=== PATIENT | female | born 1990 | race Hispanic/Latino ===

== ENCOUNTER 2018-03-27 23:38 | Emergency (ER) | payer BC, SELFPAY ==
[2018-03-28 01:48] LABS: Absolute Lymphocytes (CBC) 2.5 K/uL (0.7-4.9); Absolute Monocytes 0.4 K/uL (0.1-1.3); Absolute Neutrophil 3.7 K/uL (1.8-8.0); Eosinophils % 2.6 % (0-4.4); Hematocrit 36.8 % (36.0-45.0); Lymphocytes % 36.4 % (15.3-44.8); MPV 9.8 fL (7.6-11.3); Monocytes % 6.3 % (3.3-12.3); RBC Red Blood Cell Count 4.39 M/uL (3.86-4.86)
[2018-03-28] MEDS ORDERED: LORAZEPAM 0.5 MG TABLET ONE (01:55)
[2018-03-28 02:09] LABS: BUN Blood Urea Nitrogen 13 mg/dL (7-18); Bicarbonate 23 mmol/L (21-32); Glucose Level 105 mg/dL (74-106); Potassium 4.1 mmol/L (3.5-5.1); Sodium Level 139 mmol/L (136-145); Troponin (Emerg Dept Use Only) < 0.02 ng/mL (0.0-0.045)
--- NOTE | 2018-03-28 02:33 | EDPHYS ---
Physician Documentation [facility] Name: Heather Angeles Age: 27 yrs Sex: Female : 1990 Arrival Date: 03/27/2018 Time: 23:43 Bed 13 Private MD: ED Physician Hunter Agrawal HPI: 03/28 02:17 This 27 yrs old Female presents to ER via Ambulatory with complaints of Chest jr8 Pain, Shortness Of Breath. 02:17 Patient stated that she felt slightly anxious before going to bed tonight. About an jr8 hour after falling asleep woke up with palpitations, shortness of breath, and chest tightness. [place] that her extremities were becoming numb and heavy . Severity of symptoms: At their worst the symptoms were moderate in the emergency department the symptoms have improved moderately. The patient has not experienced similar symptoms in the past. The patient has not recently seen a physician. 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 - Social history:: Smoking status: Patient/guardian denies using tobacco, Patient uses alcohol, occasionally. - Ebola Screening: : No symptoms or risks identified at this time. ROS: 02:17 Eyes: Negative for injury, pain, redness, and discharge, ENT: Negative for injury, jr8 pain, and discharge, Neck: Negative for injury, pain, and swelling, Respiratory: Negative for shortness of breath, cough, wheezing, and pleuritic chest pain, Abdomen/GI: Negative for abdominal pain, nausea, vomiting, diarrhea, and constipation, Back: Negative for injury and pain, MS/Extremity: Negative for injury and deformity, Skin: Negative for injury, rash, and discoloration. 02:17 Cardiovascular: Positive for chest pain, palpitations, Negative for edema, orthopnea, paroxysmal nocturnal dyspnea. 02:17 Neuro: Positive for numbness, Negative for altered mental status, dizziness, gait disturbance, headache, hearing loss, loss of consciousness, seizure activity, speech changes, syncope, near syncope, tingling, tinnitus, tremor, visual changes, weakness. 02:17 Psych: Positive for anxiety, Negative for depression, suicide gesture, suicidal jr8 ideation. Exam: 02:17 Eyes: Pupils equal round and reactive to light, extra-ocular motions intact. Lids and jr8 lashes normal. Conjunctiva and sclera are non-icteric and not injected. Cornea within normal limits. Periorbital areas with no swelling, redness, or edema. ENT: Nares patent. No nasal discharge, no septal abnormalities noted. Tympanic membranes are normal and external auditory canals are clear. Oropharynx with no redness, swelling, or masses, exudates, or evidence of obstruction, uvula midline. Mucous membranes moist. Neck: Trachea midline, no thyromegaly or masses palpated, and no cervical lymphadenopathy. Supple, full range of motion without nuchal rigidity, or vertebral point tenderness. No Meningismus. Cardiovascular: Regular rate and rhythm with a normal S1 and S2. No gallops, murmurs, or rubs. Normal PMI, no JVD. No pulse deficits. Respiratory: Lungs have equal breath sounds bilaterally, clear to auscultation and percussion. No rales, rhonchi or wheezes noted. No increased work of breathing, no retractions or nasal flaring. Abdomen/GI: Soft, non-tender, with normal bowel sounds. No distension or tympany. No guarding or rebound. No evidence of tenderness throughout. Back: No spinal tenderness. No costovertebral tenderness. Full range of motion. Skin: Warm, dry with normal turgor. Normal color with no rashes, no lesions, and no evidence of cellulitis. MS/ Extremity: Pulses equal, no cyanosis. Neurovascular intact. Full, normal range of motion. Neuro: Awake and alert, GCS 15, oriented to person, place, time, and situation. Cranial nerves II-XII grossly intact. Motor strength 5/5 in all extremities. Sensory grossly intact. Cerebellar exam normal. Normal gait. Vital Signs: 00:19 BP 140 / 106; Pulse 116; Resp 20; Temp 98.4(O); Pulse Ox 99% on R/A; Weight 113.4 kg ak1 (R); Height 5 ft. 5 in. (165.10 cm); Pain 4/10; 00:34 BP 116 / 78; Pulse 98; Resp 14; Pulse Ox 99% on R/A; ak1 01:52 BP 115 / 79; Pulse 94; Resp 15; Pulse Ox 99% on R/A; ak1 00:19 Body Mass Index 41.60 (113.40 kg, 165.10 cm) ak1 MDM: 00:28 Patient medically screened. jr8 02:17 Data reviewed: vital signs, nurses notes, lab test result(s), EKG, radiologic studies, jr8 plain films, and as a result, I will discharge patient. Data interpreted: Pulse oximetry: on room air is 99 %. Interpretation: normal. Counseling: I had a detailed discussion with the patient and/or guardian regarding: the historical points, exam findings, and any diagnostic results supporting the discharge/admit diagnosis, lab results, radiology results, the need for outpatient follow up, a family practitioner, to return to the emergency department if symptoms worsen or persist or if there are any questions or concerns that arise at home. Response to treatment: the patient's symptoms have resolved after treatment, and as a result, I will discharge patient. 03/28 01:29 Order name: CBC with Diff; Complete Time: 01:57 8 03/28 01:29 Order name: Basic Metabolic Panel; Complete Time: 02:32 jr8 03/28 00:29 Order name: XRAY Chest (1 view) 8 03/28 01:29 Order name: Troponin (emerg Dept Use Only); Complete Time: 02:32 jr8 03/28 01:29 Order name: EKG - Nurse/Tech; Complete Time: 01:29 jr8 Administered Medications: 01:30 CANCELLED (Physician Discretion): Ativan 0.5 mg IVP once jr8 01:48 Not Given (Physician Discretion; medication not avalible in ER): Ativan 1 mg PO once ak1 01:48 Drug: Ativan 0.5 mg Route: PO; ak1 02:41 Follow up: Response: No adverse reaction; Anxiety decreased ak1 Disposition: 02:54 Co-signature as Attending Physician, Hunter Agrawal MD. Disposition: 03/28/18 02:32 Discharged to Home. Impression: Panic disorder [episodic paroxysmal anxiety] without agoraphobia. - Condition is Stable. - Discharge Instructions: Panic Attacks. - Prescriptions for Hydroxyzine HCl 50 mg Oral Tablet - take 1 tablet by ORAL route every 8 hours As needed; 20 tablet. - Work release form, Medication Reconciliation Form, Thank You Letter, Antibiotic Education, Prescription Opioid Use form. - Follow up: Private Physician; When: 2 - 3 days; Reason: Recheck today's complaints, Continuance of care, Re-evaluation by your physician. - Problem is new. - Symptoms have improved. Signatures: Dispatcher [employer] EDMS Yelena Blanchard RN RN bb Juan Fuentes PA PA jr8 Najma Hammer RN RN ak1 Hunter Agrawal MD MD gs Corrections: (The following items were deleted from the chart) 01:30 01:29 Ativan 0.5 mg IVP once ordered. jr8 jr8 02:44 02:32 03/28/2018 02:32 Discharged to Home. Impression: Panic disorder [episodic bb paroxysmal anxiety] without agoraphobia. Condition is Stable. Forms are Medication Reconciliation Form, Thank You Letter, Antibiotic Education, Prescription Opioid Use. Follow up: Private Physician; When: 2 - 3 days; Reason: Recheck today's complaints, Continuance of care, Re-evaluation by your physician. Problem is new. Symptoms have improved. jr8
--- NOTE | 2018-03-28 02:33 | ER ---
Nurse's Notes [facility] Name: Heather Angeles Age: 27 yrs Sex: Female : 1990 Arrival Date: 03/27/2018 Time: 23:43 Bed 13 Private MD: Diagnosis: Panic disorder [episodic paroxysmal anxiety] without agoraphobia Presentation: 03/28 00:17 Presenting complaint: Patient states: pain between her shoulder blades starting at ak1 2130. pt c/o SOB at 2315 tonight. pt denies N/V/D. pt stated she has had same pain in the past that resolved on its own with no dx. Transition of care: patient was not received from another setting of care. Onset of symptoms was March 27, 2018. Risk Assessment: Do you want to hurt yourself or someone else? Patient reports no desire to harm self or others. Initial Sepsis Screen: Does the patient meet any 2 criteria? No. Patient's initial sepsis screen is negative. Does the patient have a suspected source of infection? No. Patient's initial sepsis screen is negative. Care prior to arrival: None. 00:17 Method Of Arrival: Ambulatory ak1 00:17 Acuity: FE 3 ak1 Triage Assessment: 00:19 General: Appears in no apparent distress. Behavior is calm, cooperative, anxious. Pain: ak1 Complains of pain in thoracic area. EENT: No signs and/or symptoms were reported regarding the EENT system. Neuro: No deficits noted. Cardiovascular: Reports shortness of breath, Denies chest pain, nausea. Respiratory: No deficits noted. GI: No signs and/or symptoms were reported involving the gastrointestinal system. : No signs and/or symptoms were reported regarding the genitourinary system. Derm: No signs and/or symptoms reported regarding the dermatologic system. Musculoskeletal: No signs and/or symptoms reported regarding the musculoskeletal system. 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 - Social history:: Smoking status: Patient/guardian denies using tobacco, Patient uses alcohol, occasionally. - Ebola Screening: : No symptoms or risks identified at this time. Screenin:21 Abuse screen: Denies threats or abuse. Denies injuries from another. Nutritional ak1 screening: No deficits noted. Tuberculosis screening: No symptoms or risk factors identified. Fall Risk None identified. Assessment: 00:22 Pain: Pain does not radiate. Pain began 2129. ak1 00:23 Reassessment: Patient appears in no apparent distress at this time. No changes from ak1 previously documented assessment. see triage assessment. General: Appears in no apparent distress. 01:49 Reassessment: Patient appears in no apparent distress at this time. No changes from ak1 previously documented assessment. Patient states feeling better. Patient states symptoms have improved. Vital Signs: 00:19 BP 140 / 106; Pulse 116; Resp 20; Temp 98.4(O); Pulse Ox 99% on R/A; Weight 113.4 kg ak1 (R); Height 5 ft. 5 in. (165.10 cm); Pain 4/10; 00:34 BP 116 / 78; Pulse 98; Resp 14; Pulse Ox 99% on R/A; ak1 01:52 BP 115 / 79; Pulse 94; Resp 15; Pulse Ox 99% on R/A; ak1 00:19 Body Mass Index 41.60 (113.40 kg, 165.10 cm) ak1 ED Course: 0203 23:43 Patient arrived in ED. am2 02/04 00:17 Najma Hammer, RN is Primary Nurse. ak1 00:18 Triage completed. ak1 00:19 Arm band placed on Patient placed in an exam room, on a stretcher, on cardiac exercise specialist, ak1 on pulse oximetry. EKG completed in triage. Results shown to MD. 00:21 Patient has correct armband on for positive identification. Placed in gown. Bed in low ak1 position. Call light in reach. Side rails up X 1. Adult w/ patient. potline monitor on. Pulse ox on. NIBP on. 00:21 Patient maintains SpO2 saturation greater than 95% on room air. ak1 00:28 Juan Fuentes PA is PHCP. jr8 00:28 Hunter Agrawal MD is Attending Physician. jr8 00:46 X-ray completed. Portable x-ray completed in exam room. Patient tolerated procedure kw well. 00:47 XRAY Chest (1 view) In Process Unspecified. EDMS 01:48 Initial lab(s) drawn, by me, sent to lab. ak1 01:49 No provider procedures requiring assistance completed. ak1 02:40 Patient did not have IV access during this emergency room visit. ak1 Administered Medications: 01:30 CANCELLED (Physician Discretion): Ativan 0.5 mg IVP once jr8 01:48 Not Given (Physician Discretion; medication not avalible in ER): Ativan 1 mg PO once ak1 01:48 Drug: Ativan 0.5 mg Route: PO; ak1 02:41 Follow up: Response: No adverse reaction; Anxiety decreased ak1 Outcome: 02:32 Discharge ordered by MD. jr8 02:40 Discharged to home ambulatory, with family. ak1 02:40 Condition: improved 02:40 Discharge instructions given to patient, family, Instructed on discharge instructions, follow up and referral plans. no drinking with medication, no driving heavy equipment, medication usage, Demonstrated understanding of instructions, follow-up care, medications, Prescriptions given X 1. 02:44 Patient left the ED. bb Signatures: Dispatcher [employer] EDMS Yelena Blanchard RN RN bb Digna Marti Josh, PA PA jr8 Najma Hammer RN RN ak1 Heather Moran am2
--- NOTE | 2018-03-28 08:16 | RAD REPORT ---
EXAM DESCRIPTION: RAD - Chest Single View - 03/28/2018 12:47 am CLINICAL HISTORY: CHEST PAIN Chest pain. COMPARISON: No comparisons FINDINGS: Portable technique limits examination quality. The lungs are grossly clear. The heart is normal in size. No displaced fractures. IMPRESSION: No acute intrathoracic process suspected.
--- NOTE | 2018-03-28 09:25 | EKG ---
Test Date: 2018-03-28 Test Time: 00:09:36 Pattern Chain Maker Supervisor: ARASH MEASUREMENT RESULTS: Intervals: Rate: 116 MN: 142 QRSD: 84 QT: 338 QTc: 469 [place]: P: 47 MN: 142 QRS: 20 T: 35 INTERPRETIVE STATEMENTS: Sinus tachycardia Otherwise normal ECG No previous ECG available for comparison Electronically Signed On 03-28-18 09:24:33 COPYIST by Tony Sow
== END 2018-03-28 02:44 | disposition home or self-care (01) ==
LOC: ER 23:38
DX: F41.0 Panic disorder [episodic paroxysmal anxiety] (principal)
CPT/HCPCS: 36415; 71045; 80048; 84484; 85025; 93005; 99285

== ENCOUNTER 2023-11-17 12:15 | Emergency (ER) | payer BC ==
--- OUTSIDE RECORDS SUMMARY | 2023-11-17 12:18 | XMS REPORT | Continuity of Care Document ---
Author Name Unknown Address [address] [place] [address] [address] [place], [place] [id number] [place] [address] thconnect Address [address] [facility] [address] [place] [address] Care Team Providers Care Bail Agent Name Role Phone Alfa_May_CALEB_ Attending Clinician Unavailable Bui_Q_WAGDNU Attending Clinician Unavailable GC_SEFP_Rivera_A Attending Clinician Unavailable Alfa_May_CALEB_ Admitting Clinician Unavailable Bui_Q_WAGDNU Admitting Clinician Unavailable GC_SEFP_Rivera_A Admitting Clinician Unavailable Payers Payer Name Policy Type Policy Number Effective Date Expirati on Date Source [facility] - [facility] BENEFIT [facility] MANAGEMENT - [employer] [id number] [place]) [id number] 2017 00:00:00 Problems Condition Name Condition Details Condition Category Status Onset Date Resolution Date Last Treatment Date Treating Clinician Comments Source Generalize d anxiety disorder Generalize d Anxiety Disorder Problem Active 07-16 00:00: 00 [facility] Depressive disorder Depressive Disorder Problem Active 06-16 00:00: 00 [facility] Dyslipidem ia Dyslipidem ia Problem Active 05-16 00:00: 00 [facility] Anxiety disorder Anxiety Disorder Problem Active 04-28 00:00: 00 [facility] Allergies, Adverse Reactions, Alerts Allergy Name Allergy Type Status Severity Reaction(s) Onset Date Inactive Date Treating Clinician Comments Source PENICILL INS Allergy to substanc e Active Other [facility] CAT DANDER Allergy to substanc e Active Itching, Rash [facility] House Dust Allergy to substanc e Active Itching, Rash [facility] Social History Smoking Status Start Date Stop Date Source Current Some Day Smoker [facility] Medications Ordered Medication Name Filled Medication Name Start Date Stop Date Current Medication? Ordering Clinician Indication Dosage Frequency Signature (SIG) Comments Components Source fluoxetine 20 mg capsule Take 1 capsule every day by oral route. fluoxetine 20 mg capsule Take 1 capsule every day by oral route. No 1capsul e(s) Q1D fluoxetine 20 mg capsule Take 1 capsule every day by oral route. [facility] hydroxyzine HCl 10 mg tablet 1 po qhs prn panic attack hydroxyzine HCl 10 mg tablet 1 po qhs prn panic attack No hydroxyzin e HCl 10 mg tablet 1 po qhs prn panic attack [facility] topiramate 25 mg tablet Take 1 tablet every day by oral route in the evening. topiramate 25 mg tablet Take 1 tablet every day by oral route in the evening. No 1 Q1D topiramate 25 mg tablet Take 1 tablet every day by oral route in the evening. [facility] fluoxetine 20 mg tablet Take 1 tablet every day by oral route. fluoxetine 20 mg tablet Take 1 tablet every day by oral route. No 1 Q1D fluoxetine 20 mg tablet Take 1 tablet every day by oral route. [facility] Vital Signs Vital Name Observation Time Observation Value Comments S ource BP Diastolic 2022-07-16 00:00:00 90 mm[Hg] [facility] Height 2022-07-16 00:00:00 63 [in_i] [facility] BMI (Body Mass Index) 2022-07-16 00:00:00 38.4 kg/m2 [facility] BP Systolic 2022-07-16 00:00:00 138 mm[Hg] [facility] Body Weight 2022-07-16 00:00:00 217 [lb_av] [facility] BP Diastolic 2018-05-16 00:00:00 72 mm[Hg] [facility] Height 2018-05-16 00:00:00 64 [in_i] [facility] BMI (Body Mass Index) 2018-05-16 00:00:00 43.5 kg/m2 [facility] BP Systolic 2018-05-16 00:00:00 128 mm[Hg] [facility] Body Weight 2018-05-16 00:00:00 253.4 [lb_av] [facility] BP Diastolic 2018-05-14 00:00:00 80 mm[Hg] [facility] Height 2018-05-14 00:00:00 64 [in_i] [facility] BMI (Body Mass Index) 2018-05-14 00:00:00 43.3 kg/m2 [facility] BP Systolic 2018-05-14 00:00:00 110 mm[Hg] [facility] Body Weight 2018-05-14 00:00:00 252 [lb_av] [facility] BP Diastolic 2018-04-28 00:00:00 88 mm[Hg] [facility] Height 2018-04-28 00:00:00 64 [in_i] [facility] BMI (Body Mass Index) 2018-04-28 00:00:00 43.7 kg/m2 [facility] BP Systolic 2018-04-28 00:00:00 134 mm[Hg] [facility] Body Weight 2018-04-28 00:00:00 254.6 [lb_av] [facility] Procedures Procedure Date / Time Performed Performing Clinicia n Source electrocardiogram 2018-05-16 00:00:00 [facility] Plan of Care Planned Activity Planned Date Details Comments Source Instructions [facility] Encounters Start Date/Time End Date/Time Encounter Type Admission Type Attending Clinicians Care Facility Care Department Encounter ID Source 2023-03-19 00:00:00 2023-03-19 00:00:00 Outpatient Bui_Q_HOU_M D VFP VFP [id number] [facility] 2023-02-11 00:00:00 2023-02-11 00:00:00 Outpatient Bui_Q_HOU_M D VFP VFP [id number] [facility] 2023-01-07 00:00:00 2023-01-07 00:00:00 Outpatient Bui_Q_HOU_M D VFP VFP [id number] [facility] 2022-07-16 00:00:00 2022-07-16 00:00:00 Outpatient Bui_Q VFP VFP [id number] [facility] 2022-07-16 00:00:00 2022-07-16 00:00:00 Outpatient Bui_Q_WAGDN U VFP VFP [id number] [facility] 2022-07-16 00:00:00 2022-07-16 00:00:00 Outpatient Bui_Q_WAGDN U VFP VFP [id number] [facility] 2022-07-16 00:00:00 2022-07-16 00:00:00 Alexa Diego MD: [address] [facility] [address], [place] [address] , Ph. VFP [place] - [facility] - [place] - VM_HOU_[facility] (WAG) [id number] [facility] 2022-07-13 00:00:00 2022-07-13 00:00:00 Outpatient GC_SEFP_Riv era_A PRIV PRIV [id number] [facility] 2022-07-10 00:00:00 2022-07-10 00:00:00 Outpatient GC_SEFP_Riv era_A PRIV PRIV [id number] [facility] 2022-07-07 00:00:00 2022-07-07 00:00:00 Outpatient GC_SEFP_Riv era_A PRIV PRIV [id number] [facility] 2022-07-06 00:00:00 2022-07-06 00:00:00 Outpatient GC_SEFP_Riv era_A PRIV PRIV [id number] [facility] 2022-07-03 00:00:00 2022-07-03 00:00:00 Outpatient PRIV PRIV [id number] [facility] 2018-12-28 00:00:00 2018-12-28 00:00:00 Outpatient Bui_Q_WAGDN U VFP VFP [id number] [facility] 2018-05-16 00:00:00 2018-05-16 00:00:00 Preston Grimm MD: [address] [facility] [address], [place] [address] , Ph. VFP [place] - [facility] - VFP-[place] d [id number] [facility] 2018-05-14 00:00:00 2018-05-14 00:00:00 Preston Grimm MD: [address], [address], [place] [address] , Ph. VFP [facility] - VFP-[place] [id number] [facility] e 2018-04-28 00:00:00 2018-04-28 00:00:00 Preston Grimm MD: [address], [address], [place] [address] , Ph. VFP [place] - [facility] - VFP-[place] [id number] [facility] Practic e Results Test Description Test Time Test Comments Results Resul t Comments Source EKG study 2018-05-16 21:38:00 Rate & RhythmQrsPR IntervalQRS DurationQT [facility]val [facility] - Serum or Plasma 2018-05-16 17:32:00* Test Item Value Reference Range Interpretation Comme nts ALT (test code = ALT) 45 U/L 0-55 AST (test code = AST) 34 U/L 5-34 BUN (test code = BUN) 11.1 mg/dL 7.0-18.7 alk phos (test code = alk phos) 84 unit/L 40-150 glucose (test code = glucose) 87 mg/dL 70-99 albumin (test code = albumin) 4.0 g/dL 3.5-5.0 creatinine (test code = creatinine) 0.73 mg/dL 0.57-1.11 eGFR non- (t est code = eGFR non-) >60 total bilirubin (test code = total bilirubin) 0.4 mg/dL 0.2-1.2 eGFR - (indira t code = eGFR - ) >60 sodium (test code = sodium) 136 mEq/L 136-145 potassium (test code = potassium) 4.7 mEq/L 3.5-5.1 chloride (test code = chloride) 103 mmol/L 98-107 total protein (test code = t otal protein) 7.6 g/dL 6.4-8.3 calcium (test code = calcium) 10.0 mg/dL 8.4-10.2 CO2 (test code = CO2) 25.6 mmol/L 22.0-29.0 anion gap (test code = anion gap) 7 calc [facility]Units/volume] in Serum or [id number] 17:32:00* Test Item Value Reference Range Interpretation Comme [facility] TSH (test code = TSH) 1.069 uIU/mL 0.350-4.940 [facility]/Hemoglobin.total in [id number] 17:05:00* Test Item Value Reference Range Interpretation Comme nts Hemoglobin A1c/Hemoglobin.to brown in Blood (test code = 4548-4) 5.2 % 1.0-5.7 average blood glucose (test code = average blood glucose) 103 mg/dL [facility] Auto Differential panel - [id number] 03:43:00 * Test Item Value Reference Range Interpretation Comme [facility] white blood cell count (test code = white blood cell count) 6.0 thousand/uL 3.8-10.8 red blood cell count (test code = red blood cell count) 4.69 million/uL 3.80-5.10 hemoglobin (test code = hemoglobin) 13.0 g/dL 11.7-15.5 hematocrit (test code = hematocrit) 39.5 % 35.0-45.0 MCV (test code = MCV) 84.2 fL 80.0-100.0 MCH (test code = MCH) 27.7 pg 27.0-33.0 MCHC (test code = MCHC) 32.9 g/dL 32.0-36.0 RDW (test code = RDW) 12.7 % 11.0-15.0 platelet count (test code = platelet count) 257 thousand/uL 140-400 MPV (test code = MPV) 11.8 fL 7.5-12.5 absolute neutrophils (test code = absolute neutrophils) 3486 cells/uL 9109-4182 absolute lymphocytes (test code = absolute lymphocytes) 2028 cells/uL 850-3900 absolute monocytes (test cod e = absolute monocytes) 348 cells/uL 200-950 absolute eosinophils (test code = absolute eosinophils) 120 cells/uL 15-500 absolute basophils (test cod e = absolute basophils) 18 cells/uL 0-200 neutrophils (test code = neutrophils) 58.1 % lymphocytes (test code = lymphocytes) 33.8 % monocytes (test code = monocytes) 5.8 % eosinophils (test code = eosinophils) 2.0 % basophils (test code = basophils) 0.3 % [facility]
--- NOTE | 2023-11-17 12:33 | ER ---
Nurse's Notes [facility] Name: Heather Angeles Age: 32 yrs Sex: Female : 1990 Arrival Date: 11/17/2023 Time: 12:15 Bed 9 Private MD: Diagnosis: Rash and other nonspecific skin eruption Presentation: 11/16 12:22 Chief complaint: Patient states: GLOBAL RASH SPREADING SINCE WEDNESDAY. Coronavirus bp screen: At this time, the client does not indicate any symptoms associated with coronavirus-19. Ebola Screen: No symptoms or risks identified at this time. Initial Sepsis Screen: Does the patient meet any 2 criteria? No. Patient's initial sepsis screen is negative. Does the patient have a suspected source of infection? No. Patient's initial sepsis screen is negative. Risk Assessment: Do you want to hurt yourself or someone else? Patient reports no desire to harm self or others. Onset of symptoms is unknown. 12:22 Method Of Arrival: Ambulatory bp 12:22 Acuity: FE 5 bp Triage Assessment: 12:23 General: Appears uncomfortable, Behavior is cooperative, appropriate for age, anxious. bp Pain: Denies pain. Derm: Rash noted that is urticaria, on GLOBAL. 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 - Infectious Disease History:: Denies. - Social history:: Smoking status: Patient denies any tobacco usage or history of. Screenin:24 [facility] ED Fall Risk Assessment (Adult) History of falling in the last 3 months, bp including since admission No falls in past 3 months (0 pts) Confusion or Disorientation No (0 pts) Intoxicated or Sedated No (0 pts) Impaired Gait No (0 pts) Mobility Assist Device Used No (0 pt) Altered Elimination No (0 pt) Score/Fall Risk Level 0 - 2 = Low Risk. Abuse screen: Denies threats or abuse. Denies injuries from another. Nutritional screening: No deficits noted. Tuberculosis screening: No symptoms or risk factors identified. Assessment: 12:20 General: Appears uncomfortable, well groomed, well developed, well nourished, Behavior me1 is calm, cooperative, appropriate for age, Reports Global rash that is spreading. Pain: Denies pain. Neuro: Level of Consciousness is awake, alert, obeys commands, Oriented to person, place, time, situation, Appropriate for age. Cardiovascular: Patient's skin is warm and dry. Respiratory: Airway is patent Respiratory effort is even, unlabored, Respiratory pattern is regular, symmetrical. GI: No signs and/or symptoms were reported involving the gastrointestinal system. : No signs and/or symptoms were reported regarding the genitourinary system. EENT: No signs and/or symptoms were reported regarding the EENT system. Derm: Skin is intact, is healthy with good turgor, Skin is pink, warm \T\ dry. Derm: Rash noted that is red, raised, on generalized. Musculoskeletal: No signs and/or symptoms reported regarding the musculoskeletal system. Vital Signs: 12:22 BP 155 / 91; Pulse 99; Resp 16; Temp 97.4; Pulse Ox 100% ; Weight 95.25 kg; Height 5 bp ft. 3 in. ; 12:52 BP 142 / 87; Pulse 91; Resp 16; Temp 98.1; Pulse Ox 100% ; me1 12:22 Body Mass Index 37.20 (95.25 kg, 160.02 cm) bp ED Course: 12:17 Patient arrived in ED. im 12:20 Kevin Hunter MD is Attending Physician. ec2 12:20 Provided Education on: POC. Verbalized understanding. . me1 12:20 No provider procedures requiring assistance completed. Patient did not have IV access me1 during this emergency room visit. 12:23 Triage completed. bp 12:23 Arm band placed on. bp 12:24 Patient has correct armband on for positive identification. bp 12:38 Carina Alcazar, SONAL is Primary Nurse. me1 Administered Medications: 12:46 Drug: Doxycycline PO 100 mg PO once Route: PO; me1 12:50 Follow up: Response: No adverse reaction me1 12:46 Drug: predniSONE PO 40 mg PO once Route: PO; me1 12:50 Follow up: Response: No adverse reaction me1 Medication: 12:20 VIS not applicable for this client. me1 Outcome: 12:33 Discharge ordered by MD. ec2 13:00 Discharged to home ambulatory, me1 13:00 Condition: stable 13:00 Discharge instructions given to patient, Instructed on discharge instructions, follow up and referral plans. medication usage, Demonstrated understanding of instructions, follow-up care, medications, Prescriptions given X 2, 13:02 Patient left the ED. me1 Signatures: Refugio Dueñas RN RN Ayana Stinson Michelle, RN RN me1 Kevin Hunter MD MD ec2 Corrections: (The following items were deleted from the chart) 12:47 12:22 Chief complaint: Patient states: GLOBAL RASH SPREADING SINCE WEDNESDAY me1
--- NOTE | 2023-11-17 12:33 | EDPHYS ---
Physician Documentation [facility] Name: Heather Angeles Age: 32 yrs Sex: Female : 1990 Arrival Date: 11/17/2023 Time: 12:15 Bed 9 Private MD: ED Physician Kevin Hunter HPI: 11/16 12:30 This 32 yrs old Female presents to ER via Ambulatory with complaints of Rash. ec2 12:30 Patient arrives today for evaluation of a rash. Patient reports that she started ec2 developing a rash 4 days ago, initially started on the lower extremities, now has it on the hands spreading to the trunk. No fevers or chills. Does perform outdoor activities with barbecue and recently. No headaches, no infectious symptoms. No cough and cold symptoms. No recent new allergens.. 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 - Infectious Disease History:: Denies. - Social history:: Smoking status: Patient denies any tobacco usage or history of. ROS: 12:30 Constitutional: as per hpi ec2 Exam: 12:30 Constitutional: GEN: NAD Head: atraumatic Eyes: EOMI Ears: External ears are ec2 normal. CV: regular rate LUNGS: no respiratory distress ABD: non-distended SKIN: Small raised lesions noted in the bilateral lower extremities along with the bilateral upper extremities, less than 1 cm in size, raised, nonpustular, no drainage appreciated. No surrounding erythema. No warmth. Otherwise no evidence of oral or ocular involvement. MSK: no evidence of trauma Vital Signs: 12:22 BP 155 / 91; Pulse 99; Resp 16; Temp 97.4; Pulse Ox 100% ; Weight 95.25 kg; Height 5 bp ft. 3 in. ; 12:52 BP 142 / 87; Pulse 91; Resp 16; Temp 98.1; Pulse Ox 100% ; me1 12:22 Body Mass Index 37.20 (95.25 kg, 160.02 cm) bp MDM: 12:21 Patient medically screened. ec2 12:30 Data reviewed: vital signs. ED course: Patient arrives today for evaluation of a rash. ec2 Examination remarkable for skin findings as above. Possible tickborne exposure given the centripetal nature of it, possible allergen. I will start patient on doxycycline and steroids. I will discharge to home and have her follow-up PCP. Return precautions given. Of note will start on doxycycline without testing for as patient has female partner.. Administered Medications: 12:46 Drug: Doxycycline PO 100 mg PO once Route: PO; me1 12:50 Follow up: Response: No adverse reaction me1 12:46 Drug: predniSONE PO 40 mg PO once Route: PO; me1 12:50 Follow up: Response: No adverse reaction me1 Disposition Summary: 11/17/23 12:33 Discharge Ordered Notes: Location: Home ec2 Condition: Stable ec2 Diagnosis - Rash and other nonspecific skin eruption ec2 Followup: ec2 - With: Private Physician - When: - Reason: Re-evaluation by your physician Discharge Instructions: - Discharge Summary Sheet ec2 - Rash, Adult ec2 Forms: - Work release form me1 - Medication Reconciliation Form ec2 - Antibiotic Education ec2 - Prescription Opioid Use ec2 - Patient Portal Instructions ec2 - Leadership Thank You Letter ec2 Prescriptions: - Doxycycline Hyclate 100 mg Oral tablet - take 1 tablet ORAL route every 12 hours; 10 tablet; Refills: 0, Product ec2 Selection Permitted - Prednisone 20 mg Oral Tablet - take 2 tablets ORAL route once daily for 5 days; 10 tablet; Refills: 0, Product ec2 Selection Permitted Signatures: Refugio Dueñas RN RN Carina Alcazar RN RN co1 Kevin Hunter MD MD ec2
[2023-11-17] MEDS ORDERED: DOXYCYCLINE 100 MG CAP PO ONE (12:41)
[2023-11-17] MEDS ORDERED: predniSONE 20 MG TAB ONE (12:41)
[2023-11-17 13:15] VITALS: O2SAT 100
[2023-11-17 13:17] VITALS: BP 155/91; TEMP 97.4
== END 2023-11-17 13:02 | disposition home or self-care (01) ==
LOC: ER 12:15
DX: R21 Rash and other nonspecific skin eruption (principal)
CPT/HCPCS: 99283; J7512